=== PATIENT | male | born 1990 | race Caucasian/White ===

== ENCOUNTER 2022-10-13 18:23 | Emergency (ER) | payer MEDICAID ==
[~2022-10-13] VITALS: Ht 177.8 cm; Wt 122.5 kg
[2022-10-13 18:25] VITALS: BP 129/80
--- NOTE | 2022-10-13 18:43 | NUR ---
PT. D/C BY ROSALES MADDOX. PT. NEVER SEEN BY THIS RN. PER PT. RECEIVED ALL PAPERWORK AND PD RECEIVED THE OK TO BOOK FORM.
== END 2022-10-13 18:30 ==
LOC: MED 18:23
DX: V49.88XA Car occupant (driver) (passenger) injured in other specified transport accidents, initial encounter; Y93.89 Activity, other specified; Y92.89 Other specified places as the place of occurrence of the external cause; Y99.8 Other external cause status
CPT/HCPCS: 99283